=== PATIENT | male | born 1940 | race Caucasian/White ===

== ENCOUNTER 2018-11-14 00:10 | Outpatient (CLI) | payer MEDICARE, OTHER ==
[2018-11-14 13:08] LABS: #Basophils 0.1 thou/uL (0.0-0.2); #Eosinphils 0.2 thou/uL (0.0-0.7); #Lymphocytes 2.7 thou/uL (1.20-3.40); #Monocytes 0.9 thou/uL (0.11-0.59); #Neutrophils 4.9 thou/uL (1.40-6.50); %Basophils 0.8 % (0.0-1.0); %Eosinophils 2.5 % (0.0-10.0); %Monocytes 9.8 % (0.0-10.0); %Neutrophils 55.9 % (42.0-75.0); Hemoglobin 14.2 g/dL (14.0-18.0); Mean Corpuscular HGB CONC 34.3 g/dL (32.0-36.0); Mean Corpuscular Hemoglobin 31.4 pg (27.0-31.0); Mean Corpuscular Volume 91.6 fL (78.0-98.0); Mean Platelet Volume 7.6 fL (7.4-10.4); Platelet Count 222 thou/uL (130-400); RBC Distribution Width 13.3 % (11.5-14.5); Red Blood Cell (RBC) Count 4.52 mill/uL (4.70-6.10); White Blood Cell (WBC) Count 8.8 thou/uL (4.8-10.8)
[2018-11-14 13:09] LABS: Bilirubin Negative (Negative); Blood, Urine Negative (Negative); Clarity CLEAR (Clear); Glucose, Urine (Dipstick) Negative (Negative); Leukocyte Negative (Negative); Nitrite Negative (Negative); Protein, Urine (Dipstick) Negative (Neg-Trace); Specific Gravity, Urine 1.019 (1.002-1.036); Urobilinogen 0.2 mg/dL (0.2-1.0); pH, Urine 7.5 (5.0-9.0)
[2018-11-14 13:10] LABS: Bacteria/HPF None Seen HPF (None Seen); Hyaline Casts/LPF 0-3 HYALINE CAST LPF (0-3 Hyaline); Pathc Cast-AUWi Flag 0.13 (0-2.49); Squamous Epithelial None Seen HPF (0-3); WBC/HPF 0-3 HPF (0-3)
[2018-11-14 13:42] LABS: Anion Gap 13 mmol/L (10-20); BUN (Urea Nitrogen) 15 mg/dL (8.4-25.7); Calc. Creatinine Clearance 0 mL/min (70-130); Calcium 9.7 mg/dL (7.8-10.44); Carbon Dioxide 26 mmol/L (23-31); Chloride 104 mmol/L (98-107); Estimated GFR-MDRD 82; Glucose 100 mg/dL (83-110); Sodium 139 mmol/L (136-145)
--- NOTE | 2018-11-15 20:24 | EKG ---
Test Reason : Blood Pressure : / mmHG Vent. Rate : 059 BPM Atrial Rate : 059 BPM P-R Int : 204 ms QRS Dur : 176 ms QT Int : 504 ms P-R-T Axes : 042 101 044 degrees QTc Int : 498 ms Sinus bradycardia Right bundle branch block Low voltage QRS Abnormal ECG When compared with ECG of 15-FEB-2016 17:10, QRS duration has increased T wave inversion now evident in Anterior leads Nonspecific T wave abnormality, improved in Lateral leads QT has lengthened Confirmed by LANCE SARMIENTO, SShaina ([id number]) on 11/15/2018 8:24:04 PM Referred By: GINGER Confirmed By:DR. Ulysses LUCAS MD
== END 2018-11-14 00:11 | disposition home or self-care (01) ==
LOC: LABBT 00:10
PROVIDERS: ATTEND Orthopaedic Surgery
DX: Z01.818 Encounter for other preprocedural examination (principal); M19.012 Primary osteoarthritis, left shoulder
CPT/HCPCS: 80048; 81001; 85025; 93005; 93010

== ENCOUNTER 2018-11-14 10:30 | Inpatient (IN) | payer MEDICARE, OTHER ==
[2018-11-14 10:54] VITALS: BMI 37.3
[2018-11-16] MEDS ORDERED: Lidocaine 2% Jelly 5 ML TUBE ONE (06:08)
[2018-11-16] MEDS ORDERED: Sodium Chloride 0.9% 100 ML ONE (06:27)
[2018-11-16] MEDS ORDERED: Tranexamic Acid 1,000 MG/10 ML VIAL ONE ×2 (06:27→11:29)
[2018-11-16] MEDS ORDERED: Midazolam HCl 2 mg/2 ml Vial ONE (06:28)
[2018-11-16] MEDS ORDERED: Fentanyl 100 MCG/2 ML VIAL ONE ×3 (06:28→12:38)
[2018-11-16] MEDS ORDERED: CEFAZOLIN 2 GM in Premix Bag 1 BAG IVPB SCH ×2 (06:45→14:00)
[2018-11-16] MEDS ORDERED: Bupivacaine 0.5% 50 ML in Sodium Chloride 0.9% 50 ML NERVE BLCK SCH (07:44)
[2018-11-16] MEDS ORDERED: Zolpidem Tartrate 5 MG TAB PO PRN (07:44)
[2018-11-16] MEDS ORDERED: Ondansetron PF 4 MG/2 ML Vial IVP PRN (07:44)
[2018-11-16] MEDS ORDERED: Ropivacaine 0.2% 550 ML 550 ML NERVE BLCK SCH (07:44)
[2018-11-16] MEDS ORDERED: HYDROcodone/Acetaminophen 10/325 mg Tablet PO PRN ×2 (07:44)
[2018-11-16] MEDS ORDERED: traMADol HCl 50 MG TAB PO PRN ×2 (07:44)
[2018-11-16] MEDS ORDERED: Promethazine HCl 25 MG/ML VIAL IM PRN ×2 (07:44→10:30)
[2018-11-16] MEDS ORDERED: Ketorolac Tromethamine 30 MG/ML VIAL IVP PRN (07:44)
[2018-11-16] MEDS ORDERED: Fentanyl 100 MCG/2 ML VIAL IV PRN (07:45)
[2018-11-16] MEDS ORDERED: Promethazine HCl 25 MG/ML VIAL SLOW IVP PRN (10:30)
[2018-11-16] MEDS ORDERED: Ondansetron HCl/PF 4 MG/2 ML Vial IVP PRN (10:30)
[2018-11-16] MEDS ORDERED: Tranexamic Acid 1,000 MG in Sodium Chloride 0.9% 100 ML IVPB SCH (10:45)
[2018-11-16] MEDS ORDERED: Bisacodyl 10 MG SUPP PR PRN (13:15)
[2018-11-16] MEDS ORDERED: Methocarbamol 500 MG TAB PO PRN (13:15)
[2018-11-16] MEDS ORDERED: Acetaminophen 325 MG TAB PO PRN (13:15)
[2018-11-16] MEDS ORDERED: Milk Of Magnesia 30 ML UDCUP PO PRN (13:15)
[2018-11-16] MEDS ORDERED: diphenhydrAMINE 50 MG CAP PO PRN (13:15)
[2018-11-16] MEDS ORDERED: Methocarbamol 1 GM/10 ML VIAL SLOW IVP PRN (13:15)
--- NOTE | 2018-11-16 13:27 | OP ---
DATE OF PROCEDURE: 11/16/2018 PREOPERATIVE DIAGNOSES: Right shoulder osteoarthritis, retroverted dysplastic glenoid B3, and biceps tendinopathy. POSTOPERATIVE DIAGNOSES: Right shoulder osteoarthritis, retroverted dysplastic glenoid B3, and biceps tendinopathy. PROCEDURES PERFORMED: 1. Left total shoulder arthroplasty. 2. Biceps tenodesis. MAINTENANCE OF WAY CLERK: Lázaro Hernandez PA-C ANESTHESIOLOGISTS: 1. Rafat Arroyo CRNA. 2. Alysia Hernandez MD. ANESTHESIA: The patient received a general endotracheal intubation and interscalene block. ESTIMATED BLOOD LOSS: 250 mL. TOURNIQUET TIME: None. IMPLANTS: Tornier PerFORM Plus large 35 degree augment, a Flex 6B stem, a Flex humeral head 52 x 23. ANTIBIOTICS: Ancef 2 g, vancomycin 1.5 g, and TXA 1 g. COMPLICATIONS: None. HISTORY OF PRESENT ILLNESS: Mr. Miranda is a 78-year-old male with a history of left shoulder arthritis for many years. He has undergone conservative management and elected for operative intervention. I discussed with him the risks and benefits of the procedure to include pain, scar, bleeding, infection, damage to vital structures, decreased range of motion and strength, nonunion, fracture above or below the stem, failure of the implant, loosening, loss of life or limb, and blood clot. The patient understood the risks and benefits of the procedure and he elected to proceed. DESCRIPTION OF PROCEDURE: After time-out was performed designating the patient's left upper extremity as the operative site based on site, consents, markings. The patient's left upper extremity was prepped and draped in a sterile fashion in a beach chair position. We made a deltopectoral incision, came down, found the vein and deltoid split, came down, found the conjoint, which was flattened out with some synovitis of the biceps. There was actually a loose body within the bicipital sheath, came down and found the biceps. Used that and peeled off the patient's subscapularis coming down the humeral head. We then feel the subscapularis completely reduced and took down the osteophytes in the inferior head and neck. We then cut the head, initial cut using that to create room and space for our tray. We then brought the head into position. He had an intact rotator cuff. I removed the osteophytes, placed the position using my shaft as well as start opening up for my sequential broaching. We sounded and then sequentially broached up to a 6B stem. We used the 6 to cut in 30 degrees of external rotation and cut across to help for our version and inclination of our head. We then ensured it was retroverted. We then removed all the osteophytes that we could on the head, placed removed the patient's glenoid. We exposed the glenoid, which was significant deformity of a B3 defect without any biconcavity. We performed guide to place in the fossa to expose and find our pin anteriorly. We felt that an extra large would be covered, but would be hard to put in, so we put the large in position. We has never lost some of the anterior osteophytes, placed our pin more towards the anterior portion of the current glenoid vault, placed our pin into position. Being happy with the pin in position, we then overreamed anteriorly to ream down the osteophytes and get the first portion of our glenoid and removed that, placed our guide over the top to center, ensured that we liked our position for larger glenoid, drilled our second hole and then used our reamers sequentially made from 15 up to 35 degrees with reamer to take our concavity posteriorly. Being happy with this, we placed our trial, which seemed to sit well within the glenoid. We then pressed it firmly into position. We cut and drilled, three pegs removed, drilled our anterior. We ensured we removed osteophytes peripherally to help with space as well as to help with movement of the rotator cuff above and below. We then pulled our cement, , performed CortiLoc 35 degree large augment into position. We brought the head out and used it to press on the glenoid. We did not do any more manipulation of the glenoid for 18 minutes while I worked on the humerus. The humerus changed to 6B, which we broached down, smoothed and reamed off the top to ensure that we had better position. We trialed and liked the head position of 52 x 23 as it felt like sat flat and was under the humerus and matched tuberosity as well as front to back and superior to inferior. Being happy with the overall alignment and position of the head, after allowing 20 minutes for this cement to harden, we reduced our glenoid and we had 50 degrees side, had overhead elevation, and I liked overall position of the implants. We then removed this, drilled 4 drill holes through the bone as passing sutures and one laterally to help with the over the top stitch. We then passed stitches through the subscapularis and so then sequentially used the biceps to pass it into the groove and tenodesed pulling the posterior cuff and anterior cuff together subscap and supraspinatus. We then tied this biceps with #1 Ethibond to the posterior aspect. We then used our two stitches for the double row from the lateral aspect of the cuff and the subscapularis to oversew. Cut those two knots, closed the interval with a #1 Ethibond, felt good overall alignment, good rotation and position. We then washed. We closed the deltopectoral interval, subcu and mallory. The patient will be admitted overnight, will be discharged home with everything is in order with p.o. pain medications, block, elbow, wrist, and hand motion. Job ID: [id number]
--- NOTE | 2018-11-16 13:35 | RAD ---
LEFT SHOULDER 2 VIEWS: Date: 11/16/18 HISTORY: Status post total shoulder arthroplasty. FINDINGS: Recent left total shoulder arthroplasty changes are noted. Considerable interosseous cystic changes o f the glenoid with flattening and deformity. No dislocation or periprosthetic fracture. IMPRESSION: Status post left total arthroplasty changes. POS: OFF
[2018-11-16] MEDS: CEFAZOLIN 2 GM in Premix Bag 1 BAG IVPB SCH (15:25)
[2018-11-16] MEDS: Dronedarone HCl 400 MG TAB PO SCH (17:23)
[2018-11-16] MEDS: Famotidine 20 MG TAB PO SCH (20:35)
[2018-11-16] MEDS ORDERED: Atorvastatin Calcium 40 MG TAB PO SCH (21:00)
[2018-11-17] MEDS: CEFAZOLIN 2 GM in Premix Bag 1 BAG IVPB SCH (00:54)
[2018-11-17] MEDS: Dextrose 5 %-0.45 % NaCl 1,000 ML IV SCH ×2 (02:29→06:37)
[2018-11-17] MEDS ORDERED: Losartan 25 MG TAB PO SCH (09:00)
[2018-11-17] MEDS ORDERED: Testosterone 1% 5 GM PK TOP SCH (09:00)
[2018-11-17] MEDS ORDERED: Folic Acid 1 MG TAB PO SCH (09:00)
[2018-11-17] MEDS ORDERED: OSTERA PO SCH (09:00)
[2018-11-17] MEDS ORDERED: Amlodipine 10 MG TAB PO SCH (09:00)
[2018-11-17] MEDS ORDERED: POTASSIUM GLUCONATE PO SCH (09:00)
[2018-11-17] MEDS ORDERED: GLUCOSAMINE MSM PO SCH (09:00)
[2018-11-17] MEDS ORDERED: Fish Oil 1,000 MG CAP PO SCH (09:00)
[2018-11-17] MEDS ORDERED: Vitamin E 400 UNITS CAP PO SCH (09:00)
[2018-11-17] MEDS ORDERED: Stress 600 With Zinc 1 TAB PO SCH (09:00)
[2018-11-17] MEDS ORDERED: Multivit, Therapeutic 1 TAB PO SCH (09:00)
[2018-11-17] MEDS ORDERED: Magnesium Oxide 400 MG TAB PO SCH (09:00)
[2018-11-17] MEDS ORDERED: Ascorbic Acid 500 mg Chewable Tablet PO SCH (09:00)
[2018-11-17] MEDS: Famotidine 20 MG TAB PO SCH (09:23)
[2018-11-17] MEDS: Dronedarone HCl 400 MG TAB PO SCH (09:24)
[2018-11-17 11:40] VITALS: BP 174/89; TEMP 97.8
== END 2018-11-17 12:00 | disposition home or self-care (01) | DRG 483 ==
LOC: SURG A 11-16 05:52 → SURG B 11-16 13:09
PROVIDERS: ADMIT Orthopaedic Surgery; ATTEND Orthopaedic Surgery
PROC: 0RRK0JZ Replacement of Left Shoulder Joint with Synthetic Substitute, Open Approach (ICD-10-PCS; principal; 2018-11-16)
PROC: 0LS40ZZ Reposition Left Upper Arm Tendon, Open Approach (ICD-10-PCS; 2018-11-16)
DX: M19.012 Primary osteoarthritis, left shoulder (principal); M75.22 Bicipital tendinitis, left shoulder; Z96.652 Presence of left artificial knee joint; Z88.0 Allergy status to penicillin
CPT/HCPCS: 36415; 80048; 80076; 81001; 84153; 84403; 85025; 93005; 93010; A4306; C1713; J0690; J2250; J2795; J3010; J3370; J3490; J7050

== ENCOUNTER 2021-03-13 12:31 | Inpatient (IN) | payer MEDICARE, OTHER ==
[2021-03-13 13:20] LABS: #Basophils 0.1 thou/uL (0.0-0.2); #Eosinphils 0.2 thou/uL (0.0-0.7); #Monocytes 0.8 thou/uL (0.11-0.59); #Neutrophils 7.2 thou/uL (1.40-6.50); %Basophils 0.6 % (0.0-1.0); %Eosinophils 1.4 % (0.0-10.0); %Lymphocytes 26.8 % (21.0-51.0); %Neutrophils 64.3 % (42.0-75.0); Mean Corpuscular HGB CONC 34.4 g/dL (32.0-36.0); Mean Corpuscular Hemoglobin 31.1 pg (27.0-31.0); Mean Corpuscular Volume 90.6 fL (78.0-98.0); Mean Platelet Volume 7.7 fL (7.4-10.4); Platelet Count 282 thou/uL (130-400); RBC Distribution Width 13.1 % (11.5-14.5); Red Blood Cell (RBC) Count 3.87 mill/uL (4.70-6.10); White Blood Cell (WBC) Count 11.2 thou/uL (4.8-10.8)
[2021-03-13 13:48] LABS: ALT (SGPT) 41 U/L (8-55); AST (SGOT) 32 U/L (5-34); Albumin 3.9 g/dL (3.4-4.8); Alkaline Phosphatase 52 U/L (40-110); Anion Gap 15 mmol/L (10-20); BUN (Urea Nitrogen) 18 mg/dL (8.4-25.7); Bilirubin, Total 0.4 mg/dL (0.2-1.2); Calc. Creatinine Clearance 0 mL/min (70-130); Carbon Dioxide 22 mmol/L (23-31); Chloride 108 mmol/L (98-107); Glucose 192 mg/dL (83-110); Potassium 4.6 mmol/L (3.5-5.1); Protein, Total 6.9 g/dL (5.8-8.1); Sodium 140 mmol/L (136-145)
[2021-03-13] MEDS ORDERED: Ondansetron PF 4 MG/2 ML Vial ONE ×2 (13:54→16:20)
[2021-03-13] MEDS ORDERED: Pantoprazole 80 MG, Admixture Fee 1 EACH in Sodium Chloride 0.9% 100 ML IVPB SCH (16:30)
[2021-03-13] MEDS ORDERED: Ondansetron ODT 4 MG TAB PO PRN (17:25)
[2021-03-13] MEDS ORDERED: Acetaminophen 325 MG TAB PO PRN (17:25)
[2021-03-13] MEDS ORDERED: Ondansetron PF 4 MG/2 ML Vial IVP PRN (17:25)
[2021-03-13] MEDS ORDERED: HumaLOG 300 UNITS/3 ML VIAL SC PRN ×2 (17:47)
[2021-03-13] MEDS ORDERED: Dextrose 5% in Water 1,000 ML IV PRN (17:47)
[2021-03-13] MEDS ORDERED: Dextrose 50% Abboject 50 ML SYRINGE SLOW IVP PRN (17:47)
[2021-03-13 23:05] VITALS: BMI 36.9
[2021-03-13] MEDS: Atorvastatin Calcium 40 MG TAB PO SCH (23:16)
[2021-03-13] MEDS: Pantoprazole 40 MG VIAL IVP SCH (23:16)
[2021-03-13] MEDS: metFORMIN 500 MG TAB PO SCH (23:16)
[2021-03-14 05:55] LABS: #Eosinphils 0.2 thou/uL (0.0-0.7); #Lymphocytes 2.3 thou/uL (1.20-3.40); #Monocytes 0.5 thou/uL (0.11-0.59); #Neutrophils 3.3 thou/uL (1.40-6.50); %Basophils 0.5 % (0.0-1.0); %Eosinophils 3.3 % (0.0-10.0); %Monocytes 8.3 % (0.0-10.0); %Neutrophils 51.8 % (42.0-75.0); Hemoglobin 8.7 g/dL (14.0-18.0); Mean Corpuscular Volume 91.5 fL (78.0-98.0); Mean Platelet Volume 7.8 fL (7.4-10.4); Platelet Count 196 thou/uL (130-400); RBC Distribution Width 13.3 % (11.5-14.5); Red Blood Cell (RBC) Count 2.73 mill/uL (4.70-6.10); White Blood Cell (WBC) Count 6.4 thou/uL (4.8-10.8)
[2021-03-14 06:08] LABS: Anion Gap 9 mmol/L (10-20); BUN (Urea Nitrogen) 13 mg/dL (8.4-25.7); Calc. Creatinine Clearance 130 mL/min (70-130); Carbon Dioxide 26 mmol/L (23-31); Chloride 108 mmol/L (98-107); Glucose 145 mg/dL (83-110); Potassium 4.4 mmol/L (3.5-5.1); Sodium 139 mmol/L (136-145)
[2021-03-14] MEDS: Magnesium Oxide 400 MG TAB PO SCH (08:22)
[2021-03-14] MEDS: Losartan 25 MG TAB PO SCH (08:22)
[2021-03-14] MEDS: metFORMIN 500 MG TAB PO SCH ×2 (08:22→20:57)
[2021-03-14] MEDS: Potassium Chloride 10 MEQ TAB PO SCH (08:23)
[2021-03-14] MEDS: Dronedarone HCl 400 MG TAB PO SCH ×2 (08:23→17:49)
[2021-03-14] MEDS: Folic Acid 1 MG TAB PO SCH (08:23)
[2021-03-14] MEDS: Amlodipine 10 MG TAB PO SCH (08:23)
[2021-03-14] MEDS: Pantoprazole 40 MG VIAL IVP SCH ×2 (08:24→20:56)
[2021-03-14] MEDS ORDERED: GoLYTELY 4,000 ml Bottle PO SCH (10:30)
[2021-03-14 13:29] LABS: Hemoglobin 8.9 g/dL (14.0-18.0)
[2021-03-14 18:42] LABS: SARS-CoV-2 PCR by NAA Not Detected (NotDetected)
[2021-03-14] MEDS: Atorvastatin Calcium 40 MG TAB PO SCH (20:56)
[2021-03-14 22:52] LABS: Hemoglobin 9.3 g/dL (14.0-18.0)
[2021-03-15] MEDS ORDERED: Lactated Ringer's 500 ML IV SCH (00:30)
[2021-03-15 01:18] LABS: Anion Gap 11 mmol/L (10-20); BUN (Urea Nitrogen) 9 mg/dL (8.4-25.7); Calc. Creatinine Clearance 124 mL/min (70-130); Calcium 8.1 mg/dL (7.8-10.44); Carbon Dioxide 24 mmol/L (23-31); Chloride 107 mmol/L (98-107); Glucose 132 mg/dL (83-110); Magnesium 1.8 mg/dL (1.6-2.6); Phosphorus 2.5 mg/dL (2.3-4.7); Potassium 3.5 mmol/L (3.5-5.1); Sodium 138 mmol/L (136-145)
[2021-03-15 01:23] LABS: Troponin I Less than 0.010 ng/mL (< 0.028)
[2021-03-15 05:34] LABS: #Eosinphils 0.3 thou/uL (0.0-0.7); #Lymphocytes 2.2 thou/uL (1.20-3.40); #Monocytes 0.5 thou/uL (0.11-0.59); #Neutrophils 3.8 thou/uL (1.40-6.50); %Basophils 0.4 % (0.0-1.0); %Eosinophils 3.9 % (0.0-10.0); %Lymphocytes 32.6 % (21.0-51.0); %Monocytes 7.5 % (0.0-10.0); %Neutrophils 55.5 % (42.0-75.0); Hemoglobin 8.7 g/dL (14.0-18.0); Mean Corpuscular HGB CONC 34.3 g/dL (32.0-36.0); Mean Corpuscular Volume 90.2 fL (78.0-98.0); Platelet Count 219 thou/uL (130-400); RBC Distribution Width 13.5 % (11.5-14.5); Red Blood Cell (RBC) Count 2.81 mill/uL (4.70-6.10); White Blood Cell (WBC) Count 6.9 thou/uL (4.8-10.8)
[2021-03-15 05:53] LABS: Anion Gap 11 mmol/L (10-20); BUN (Urea Nitrogen) 7 mg/dL (8.4-25.7); Calc. Creatinine Clearance 122 mL/min (70-130); Carbon Dioxide 27 mmol/L (23-31); Chloride 106 mmol/L (98-107); Glucose 145 mg/dL (83-110); Potassium 4.1 mmol/L (3.5-5.1); Sodium 140 mmol/L (136-145)
[2021-03-15] MEDS ORDERED: PHENYLEPHRINE-NS 100 MCG/ML 10 ML SYRINGE ONE (09:38)
[2021-03-15] MEDS ORDERED: Lidocaine 1% PF 5 ML VIAL ONE (09:38)
[2021-03-15] MEDS ORDERED: ePHEDrine 50 MG/ML VIAL ONE (09:38)
[2021-03-15] MEDS ORDERED: PROPOFOL 200 MG/20 ML VIAL ONE (09:38)
[2021-03-15] MEDS: Potassium Chloride 10 MEQ TAB PO SCH (11:26)
[2021-03-15] MEDS: metFORMIN 500 MG TAB PO SCH ×2 (11:26→21:24)
[2021-03-15] MEDS: Losartan 25 MG TAB PO SCH (11:26)
[2021-03-15] MEDS: Dronedarone HCl 400 MG TAB PO SCH ×2 (11:26→17:12)
[2021-03-15] MEDS: Folic Acid 1 MG TAB PO SCH (11:26)
[2021-03-15] MEDS: Pantoprazole 40 MG VIAL IVP SCH (11:26)
[2021-03-15] MEDS: Magnesium Oxide 400 MG TAB PO SCH (11:26)
[2021-03-15 12:26] LABS: Hemoglobin 9.8 g/dL (14.0-18.0)
[2021-03-15] MEDS ORDERED: Amiodarone 450 MG, Admixture Fee 1 EACH in Dextrose 5% in Water 250 ML IVPB SCH (14:45)
[2021-03-15] MEDS ORDERED: Amiodarone 150 MG, Admixture Fee 1 EACH in Dextrose 5% in Water 100 ML IVPB SCH (14:45)
[2021-03-15] MEDS: Atorvastatin Calcium 40 MG TAB PO SCH (21:24)
[2021-03-16 06:28] LABS: #Eosinphils 0.2 thou/uL (0.0-0.7); #Lymphocytes 1.9 thou/uL (1.20-3.40); #Monocytes 0.4 thou/uL (0.11-0.59); #Neutrophils 2.9 thou/uL (1.40-6.50); %Basophils 0.3 % (0.0-1.0); %Eosinophils 4.3 % (0.0-10.0); %Lymphocytes 34.9 % (21.0-51.0); %Monocytes 8.1 % (0.0-10.0); %Neutrophils 52.4 % (42.0-75.0); Hemoglobin 8.6 g/dL (14.0-18.0); Mean Corpuscular HGB CONC 33.8 g/dL (32.0-36.0); Mean Corpuscular Hemoglobin 30.9 pg (27.0-31.0); Mean Corpuscular Volume 91.3 fL (78.0-98.0); Mean Platelet Volume 7.6 fL (7.4-10.4); Platelet Count 209 thou/uL (130-400); RBC Distribution Width 13.7 % (11.5-14.5); Red Blood Cell (RBC) Count 2.79 mill/uL (4.70-6.10); White Blood Cell (WBC) Count 5.4 thou/uL (4.8-10.8)
[2021-03-16 06:45] LABS: Anion Gap 13 mmol/L (10-20); BUN (Urea Nitrogen) 8 mg/dL (8.4-25.7); Calc. Creatinine Clearance 127 mL/min (70-130); Carbon Dioxide 25 mmol/L (23-31); Chloride 107 mmol/L (98-107); Potassium 3.8 mmol/L (3.5-5.1); Sodium 141 mmol/L (136-145)
[2021-03-16 06:46] LABS: Calcium 7.9 mg/dL (7.8-10.44); Glucose 135 mg/dL (83-110)
[2021-03-16] MEDS: metFORMIN 500 MG TAB PO SCH (08:18)
[2021-03-16] MEDS: Dronedarone HCl 400 MG TAB PO SCH ×2 (08:18→16:25)
[2021-03-16] MEDS: Amlodipine 10 MG TAB PO SCH (08:18)
[2021-03-16] MEDS: Losartan 25 MG TAB PO SCH (08:19)
[2021-03-16] MEDS: Potassium Chloride 10 MEQ TAB PO SCH (08:19)
[2021-03-16] MEDS: Folic Acid 1 MG TAB PO SCH (08:19)
[2021-03-16] MEDS: Magnesium Oxide 400 MG TAB PO SCH (08:20)
[2021-03-16 10:05] LABS: Hemoglobin 9.1 g/dL (14.0-18.0)
[2021-03-16] MEDS ORDERED: Ferrous Gluconate 324 MG TAB PO SCH (11:00)
[2021-03-16 16:02] VITALS: BP 134/68; TEMP 98
[2021-03-16] MEDS ORDERED: FLU VACC QS2021-22(65YR UP)/PF 240 MCG/0.7 ML SYRINGE IM ONE (21:00)
== END 2021-03-16 17:00 | disposition home or self-care (01) | DRG 920 ==
LOC: ERS 12:31 → SURG A 16:51 → 3SE 03-14 02:02
PROVIDERS: ADMIT Student in an Organized Health Care Education/Training Program; ATTEND Student in an Organized Health Care Education/Training Program
PROC: 0DJD8ZZ Inspection of Lower Intestinal Tract, Via Natural or Artificial Opening Endoscopic (ICD-10-PCS; principal; 2021-03-16)
DX: K91.840 Postprocedural hemorrhage of a digestive system organ or structure following a digestive system procedure (principal); D62 Acute posthemorrhagic anemia; D68.32 Hemorrhagic disorder due to extrinsic circulating anticoagulants; K63.3 Ulcer of intestine; Z20.822 Contact with and (suspected) exposure to COVID-19; I48.0 Paroxysmal atrial fibrillation; K57.30 Diverticulosis of large intestine without perforation or abscess without bleeding; K64.8 Other hemorrhoids; I10 Essential (primary) hypertension; E11.9 Type 2 diabetes mellitus without complications; E78.5 Hyperlipidemia, unspecified; Y83.8 Other surgical procedures as the cause of abnormal reaction of the patient, or of later complication, without mention of misadventure at the time of the procedure; T45.515A Adverse effect of anticoagulants, initial encounter; T39.015A Adverse effect of aspirin, initial encounter; G47.30 Sleep apnea, unspecified; Z96.653 Presence of artificial knee joint, bilateral; E78.00 Pure hypercholesterolemia, unspecified; Z86.73 Personal history of transient ischemic attack (TIA), and cerebral infarction without residual deficits; Z98.890 Other specified postprocedural states; Z98.49 Cataract extraction status, unspecified eye; Z86.711 Personal history of pulmonary embolism; Z87.891 Personal history of nicotine dependence; Z79.899 Other long term (current) drug therapy; Z79.01 Long term (current) use of anticoagulants; Z79.82 Long term (current) use of aspirin; Z79.84 Long term (current) use of oral hypoglycemic drugs; Z88.0 Allergy status to penicillin
CPT/HCPCS: 36415; 36416; 80048; 80053; 83735; 84100; 84484; 85025; 86850; 86900; 86901; 93005; 93010; 96365; 96375; 96376; C9113; J2405; J2704; J3490; J7120; U0003; U0005

== ENCOUNTER 2021-12-15 14:24 | Outpatient (CLI) | payer MEDICARE, OTHER ==
[2021-12-15 15:34] LABS: #Basophils 0.1 10x3/uL (0.0-0.2); #Eosinphils 0.2 10x3/uL (0.0-0.5); #Neutrophils 5.1 10x3/uL (1.5-8.4); %Basophils 0.6 % (0.0-2.0); %Eosinophils 1.9 % (0.0-6.0); %Lymphocytes 27.3 % (18.0-47.0); %Monocytes 11.2 % (0.0-10.0); %Neutrophils 58.4 % (40.0-75.0); Hemoglobin 15.1 g/dL (13.5-17.5); Mean Corpuscular HGB CONC 33.6 g/dL (32.0-36.0); Mean Corpuscular Hemoglobin 30.1 pg (27.0-33.0); Mean Corpuscular Volume 89.6 fl (81.2-95.1); Mean Platelet Volume 10.2 fl (7.4-10.4); Platelet Count 285 10x3/uL (150-450); RBC Distribution Width 13.9 % (11.5-14.5); Red Blood Cell (RBC) Count 5.01 10x6/uL (4.32-5.72); White Blood Cell (WBC) Count 8.8 10x3/uL (3.5-10.5)
[2021-12-15 16:17] LABS: ALT (SGPT) 25 U/L (8-55); AST (SGOT) 21 U/L (5-34); Albumin 4.2 g/dL (3.4-4.8); Alkaline Phosphatase 51 U/L (40-110); Anion Gap 18 mmol/L (10-20); BUN (Urea Nitrogen) 19 mg/dL (8.4-25.7); Bilirubin, Total 0.8 mg/dL (0.2-1.2); Calc. Creatinine Clearance 0 mL/min (70-130); Calcium 8.9 mg/dL (7.8-10.44); Carbon Dioxide 22 mmol/L (23-31); Chloride 102 mmol/L (98-107); Estimated GFR 75; Globulin 3.5 g/dL (2.4-3.5); Glucose 211 mg/dL (83-110); Potassium 4.4 mmol/L (3.5-5.1); Protein, Total 7.7 g/dL (5.8-8.1); Sodium 138 mmol/L (136-145)
== END 2021-12-15 14:25 | disposition home or self-care (01) ==
LOC: LABBT 14:24
PROVIDERS: ATTEND Internal Medicine Cardiovascular Disease
DX: Z01.812 Encounter for preprocedural laboratory examination (principal); Z20.822 Contact with and (suspected) exposure to COVID-19
CPT/HCPCS: 80053; 85025; 87811

== ENCOUNTER 2021-12-16 06:43 | Day surgery (SDC) | payer MEDICARE, OTHER ==
[2021-12-15 13:41] VITALS: BMI 37.3
[2021-12-16] MEDS ORDERED: PROPOFOL 20 ML ONE (09:40)
== END 2021-12-16 11:27 | disposition home or self-care (01) ==
LOC: SDC 06:43
PROVIDERS: ATTEND Internal Medicine Cardiovascular Disease
PROC: 5A2204Z Restoration of Cardiac Rhythm, Single (ICD-10-PCS; principal; 2021-12-16)
DX: I48.0 Paroxysmal atrial fibrillation (principal); I25.10 Atherosclerotic heart disease of native coronary artery without angina pectoris; I10 Essential (primary) hypertension; E11.9 Type 2 diabetes mellitus without complications; M19.90 Unspecified osteoarthritis, unspecified site; E78.5 Hyperlipidemia, unspecified; Z86.711 Personal history of pulmonary embolism; Z86.718 Personal history of other venous thrombosis and embolism; Z86.73 Personal history of transient ischemic attack (TIA), and cerebral infarction without residual deficits; Z87.891 Personal history of nicotine dependence; Z79.01 Long term (current) use of anticoagulants; Z79.82 Long term (current) use of aspirin; Z79.84 Long term (current) use of oral hypoglycemic drugs; Z79.899 Other long term (current) drug therapy; Z88.0 Allergy status to penicillin
CPT/HCPCS: 92960; J2704

== ENCOUNTER 2021-12-25 08:35 | Outpatient (CLI) | payer MEDICARE, OTHER ==
[2021-12-25 10:07] LABS: Hemoglobin 15.8 g/dL (13.5-17.5); Mean Corpuscular HGB CONC 33.8 g/dL (32.0-36.0); Mean Corpuscular Hemoglobin 29.9 pg (27.0-33.0); Mean Corpuscular Volume 88.4 fl (81.2-95.1); Mean Platelet Volume 9.9 fl (7.4-10.4); Platelet Count 304 10x3/uL (150-450); RBC Distribution Width 13.7 % (11.5-14.5); Red Blood Cell (RBC) Count 5.28 10x6/uL (4.32-5.72); White Blood Cell (WBC) Count 8.4 10x3/uL (3.5-10.5)
[2021-12-25 10:20] LABS: INR-International Normal Ratio 1.1; Prothrombin Time 12.1 sec (9.5-12.1)
[2021-12-25 10:25] LABS: Anion Gap 18 mmol/L (10-20); BUN (Urea Nitrogen) 15 mg/dL (8.4-25.7); Calc. Creatinine Clearance 0 mL/min (70-130); Calcium 9.3 mg/dL (7.8-10.44); Carbon Dioxide 25 mmol/L (23-31); Chloride 103 mmol/L (98-107); Estimated GFR 73; Glucose 177 mg/dL (83-110); Potassium 5.1 mmol/L (3.5-5.1); Sodium 141 mmol/L (136-145)
== END 2021-12-25 08:36 | disposition home or self-care (01) ==
LOC: LABBT 08:35
PROVIDERS: ATTEND Internal Medicine Cardiovascular Disease
DX: Z01.812 Encounter for preprocedural laboratory examination (principal); I48.0 Paroxysmal atrial fibrillation; Z20.822 Contact with and (suspected) exposure to COVID-19
CPT/HCPCS: 80048; 85027; 85610; 85730; 87811

== ENCOUNTER 2021-12-30 09:35 | Day surgery (SDC) | payer MEDICARE, OTHER ==
[2021-12-28 14:54] VITALS: BMI 37.3
[2021-12-30] MEDS ORDERED: Protamine Sulfate 50 MG/5 ML VIAL ONE (09:55)
[2021-12-30] MEDS ORDERED: Heparin 25,000 units/D5W 500 ML ONE (09:55)
[2021-12-30] MEDS ORDERED: Isoproterenol 0.2 MG/1 ML AMP ONE (09:55)
[2021-12-30] MEDS ORDERED: Heparin 10,000 UNITS/ 10 ML VIAL ONE ×2 (09:55→12:45)
[2021-12-30] MEDS ORDERED: Rocuronium Bromide 10 MG/ML (10ML VIAL) ONE (10:55)
[2021-12-30] MEDS ORDERED: Ondansetron PF 4 MG/2 ML Vial ONE (10:55)
[2021-12-30] MEDS ORDERED: PHENYLEPHRINE-NS 100 MCG/ML 10 ML SYRINGE ONE (10:55)
[2021-12-30] MEDS ORDERED: Glycopyrrolate 0.2 MG/ML 5 ML SYRINGE ONE (10:55)
[2021-12-30] MEDS ORDERED: Lidocaine 1% PF 5 ML VIAL ONE (10:55)
[2021-12-30] MEDS ORDERED: PROPOFOL 200 MG/20 ML VIAL ONE (10:55)
[2021-12-30] MEDS ORDERED: Succinylcholine 200 MG/10 ml SYRINGE FS ONE (10:55)
[2021-12-30] MEDS ORDERED: Fentanyl 100 MCG/2 ML VIAL ONE (11:34)
== END 2021-12-30 19:00 | disposition home or self-care (01) ==
LOC: SDC 09:35
PROVIDERS: ATTEND Internal Medicine Cardiovascular Disease
PROC: B244ZZ3 Ultrasonography of Right Heart, Intravascular (ICD-10-PCS; principal; 2021-12-30)
PROC: 02583ZZ Destruction of Conduction Mechanism, Percutaneous Approach (ICD-10-PCS; 2021-12-30)
PROC: 02K83ZZ Map Conduction Mechanism, Percutaneous Approach (ICD-10-PCS; 2021-12-30)
PROC: 4A023FZ Measurement of Cardiac Rhythm, Percutaneous Approach (ICD-10-PCS; 2021-12-30)
PROC: 4A0234Z Measurement of Cardiac Electrical Activity, Percutaneous Approach (ICD-10-PCS; 2021-12-30)
DX: I48.19 Other persistent atrial fibrillation (principal); I11.9 Hypertensive heart disease without heart failure; I25.10 Atherosclerotic heart disease of native coronary artery without angina pectoris; E11.9 Type 2 diabetes mellitus without complications; G47.33 Obstructive sleep apnea (adult) (pediatric); M19.90 Unspecified osteoarthritis, unspecified site; E78.5 Hyperlipidemia, unspecified; Z86.73 Personal history of transient ischemic attack (TIA), and cerebral infarction without residual deficits; Z86.711 Personal history of pulmonary embolism; Z87.891 Personal history of nicotine dependence; Z79.01 Long term (current) use of anticoagulants; Z79.82 Long term (current) use of aspirin; Z79.84 Long term (current) use of oral hypoglycemic drugs; Z79.899 Other long term (current) drug therapy; Z88.0 Allergy status to penicillin
CPT/HCPCS: 85347; 93005; 93010; 93613; 93622; 93623; 93656; 93657; 93662; J1644; J2405; J2704; J2710; J2720; J3010

== ENCOUNTER 2022-03-17 06:05 | Day surgery (SDC) | payer MEDICARE, OTHER ==
[2022-03-15 12:13] VITALS: BMI 35.7
[2022-03-17] MEDS ORDERED: Famotidine/PF 20 mg/2ml Vial ONE (07:22)
[2022-03-17] MEDS ORDERED: Ondansetron PF 4 MG/2 ML Vial ONE ×2 (07:22→07:25)
[2022-03-17] MEDS ORDERED: Lidocaine 1% MPF 2 ML VIAL ONE (07:25)
[2022-03-17] MEDS ORDERED: PROPOFOL 200 MG/20 ML VIAL ONE (07:25)
[2022-03-17] MEDS ORDERED: Phenylephrine 10 MG/ML VIAL ONE (07:25)
== END 2022-03-17 08:45 | disposition home or self-care (01) ==
LOC: SDC 06:05
PROVIDERS: ATTEND Internal Medicine Cardiovascular Disease
PROC: 5A2204Z Restoration of Cardiac Rhythm, Single (ICD-10-PCS; principal; 2022-03-17)
DX: I48.0 Paroxysmal atrial fibrillation (principal); I48.4 Atypical atrial flutter; I25.10 Atherosclerotic heart disease of native coronary artery without angina pectoris; I10 Essential (primary) hypertension; E11.9 Type 2 diabetes mellitus without complications; G47.33 Obstructive sleep apnea (adult) (pediatric); M19.90 Unspecified osteoarthritis, unspecified site; E78.5 Hyperlipidemia, unspecified; E66.01 Morbid (severe) obesity due to excess calories; Z68.35 Body mass index [BMI] 35.0-35.9, adult; Z86.711 Personal history of pulmonary embolism; Z86.73 Personal history of transient ischemic attack (TIA), and cerebral infarction without residual deficits; Z87.891 Personal history of nicotine dependence; Z79.01 Long term (current) use of anticoagulants; Z79.82 Long term (current) use of aspirin; Z79.84 Long term (current) use of oral hypoglycemic drugs; Z79.899 Other long term (current) drug therapy; Z88.0 Allergy status to penicillin
CPT/HCPCS: 92960; 93005; 93010; J2370; J2405; J2704; S0028

== ENCOUNTER 2022-09-25 12:01 | Emergency (ER) | payer MEDICARE, OTHER ==
[2022-09-25] MEDS ORDERED: CEFAZOLIN 2 GM VIAL ONE (12:10)
[2022-09-25] MEDS ORDERED: fentaNYL 50 mcg/mL 1 mL Vial ONE ×2 (12:10→14:50)
[2022-09-25] MEDS ORDERED: Boostrix 0.5 ML (Tdap) VIAL (>/=7 yrs of age) ONE (12:21)
[2022-09-25 12:29] LABS: #Basophils 0.1 thou/uL (0.0-0.2); #Eosinphils 0.2 thou/uL (0.0-0.7); #Lymphocytes 4.3 thou/uL (1.20-3.40); #Monocytes 0.8 thou/uL (0.11-0.59); #Neutrophils 5.5 thou/uL (1.40-6.50); %Basophils 0.6 % (0.0-1.0); %Eosinophils 2.1 % (0.0-10.0); %Lymphocytes 39.3 % (21.0-51.0); %Monocytes 7.6 % (0.0-10.0); %Neutrophils 50.5 % (42.0-75.0); Hemoglobin 16.2 g/dL (14.0-18.0); Mean Corpuscular HGB CONC 34.7 g/dL (32.0-36.0); Mean Corpuscular Hemoglobin 32.8 pg (27.0-31.0); Mean Corpuscular Volume 94.5 fl (78.0-98.0); Mean Platelet Volume 8.5 fL (7.4-10.4); Platelet Count 251 10x3/uL (130-400); RBC Distribution Width 12.6 % (11.5-14.5); Red Blood Cell (RBC) Count 4.92 mill/uL (4.70-6.10); White Blood Cell (WBC) Count 10.9 10x3/uL (4.8-10.8)
[2022-09-25] MEDS ORDERED: Lidocaine 1% w/Epinephrine 1:100K 20 ML VIAL ONE (13:17)
[2022-09-25 13:37] LABS: Albumin 3.7 g/dL (3.4-4.8)
[2022-09-25 13:39] LABS: Chloride 105 mmol/L (98-107); Potassium 3.9 mmol/L (3.5-5.1); Sodium 139 mmol/L (136-145)
[2022-09-25 13:40] LABS: Calcium 8.8 mg/dL (7.8-10.44); Globulin 3.1 g/dL (2.4-3.5); Glucose 190 mg/dL (83-110); Protein, Total 6.8 g/dL (5.8-8.1)
[2022-09-25 13:41] LABS: Carbon Dioxide 20 mmol/L (23-31)
[2022-09-25 13:42] LABS: Anion Gap 18 mmol/L (10-20); Bilirubin, Total 0.5 mg/dL (0.2-1.2)
[2022-09-25 13:43] LABS: Alkaline Phosphatase 47 U/L (40-110); Calc. Creatinine Clearance 0 mL/min (70-130); Estimated GFR 78
[2022-09-25 13:44] LABS: BUN (Urea Nitrogen) 14 mg/dL (8.4-25.7)
[2022-09-25 13:45] LABS: AST (SGOT) 41 U/L (5-34)
[2022-09-25 13:46] LABS: ALT (SGPT) 55 U/L (8-55)
== END 2022-09-25 16:37 | disposition short-term general hospital (02) ==
LOC: ERS 12:01
DX: S56.125A Laceration of flexor muscle, fascia and tendon of right ring finger at forearm level, initial encounter (principal); D72.829 Elevated white blood cell count, unspecified; E78.00 Pure hypercholesterolemia, unspecified; I10 Essential (primary) hypertension; W31.2XXA Contact with powered woodworking and forming machines, initial encounter; Z87.891 Personal history of nicotine dependence; Z23 Encounter for immunization; Z79.84 Long term (current) use of oral hypoglycemic drugs; Z79.82 Long term (current) use of aspirin; Z79.01 Long term (current) use of anticoagulants; Z79.899 Other long term (current) drug therapy
CPT/HCPCS: 73130; 80053; 85025; 86850; 86900; 86901; 90715; 94760; J3010; 13132; 36415; 90471; 96365; 96375; 96376